=== PATIENT | male | born 1965 | race Caucasian/White ===

== ENCOUNTER 2020-12-22 10:43 | Outpatient (CLI) | payer MEDICARE, OTHER, SELFPAY ==
--- NOTE | ~2020-12-22 | CT_ITS ---
EXAMINATION: CT lung screening DATE: 12/22/2020 11:05 INDICATION: History of tobacco dependence. TECHNIQUE: Computed tomography (CT) of the chest was performed without intravenous contrast. The dose -length product was 131.54 mGy-cm. Automated exposure control and iterative reconstruction technique were employed. COMPARISON: None FINDINGS: There is mild emphysema. No thoracic lymphadenopathy. Heart size is normal. No significant pleural or pericardial effusion. No evidence for aortic aneurysm. The upper abdomen is unremarkable. There is a 3 mm left lower lobe nodule, image 69. Calcified granulomas of the lingula. No lytic or bl astic lesions. IMPRESSION: 1. Lung-RADS category 2: Benign appearance or behavior. Continue annual screening with noncontrast lo w-dose chest CT in 12 months. Reviewed, dictated and finalized at location B. IMPRESSION: 1. Lung-RADS category 2: Benign appearance or behavior. Continue annual screeni ng with noncontrast low-dose chest CT in 12 months.
== END 2020-12-22 10:44 | disposition home or self-care (01) ==
PROVIDERS: PCP Internal Medicine; Visit Provider Nurse Practitioner
DX: Z12.2 Encounter for screening for malignant neoplasm of respiratory organs (principal); Z72.0 Tobacco use
CPT/HCPCS: 71271

== ENCOUNTER 2022-02-27 12:07 | Outpatient (CLI) | payer MEDICARE, SELFPAY ==
--- NOTE | ~2022-02-27 | MR_ITS ---
EXAMINATION: MR brain/brain stem wo/w con DATE: 02/27/2022 12:56 INDICATION: Multiple sclerosis. TECHNIQUE: Magnetic resonance imaging (MRI) of the brain and brainstem was performed without and with 18 mL MultiHance intravenous contrast. COMPARISON: None. FINDINGS: There are approximately 8 total lesions of increased T2-weighted signal intensity in the br ain. Of these lesions, multiple are periventricular, one is juxtacortical, and none are infratentoria l. None of the lesions enhance. There is no acute ischemic infarct or intracranial hemorrhage. The ve ntricles are normal in size. There is mucosal thickening in the paranasal sinuses. There are mucous r etention cysts in right maxillary sinus. The orbits are normal. There are trace bilateral mastoid eff usions. IMPRESSION: 1. Mild nonspecific cerebral white matter disease, which may be multiple sclerosis and/or chronic sma ll vessel ischemic disease. Reviewed, dictated and finalized at location A. IMPRESSION: 1. Mild nonspecific cerebral white matter disease, which may be multiple sclero sis and/or chronic small vessel ischemic disease.
[2022-02-27 12:33] LABS: Estimated Glomerular Filt Rate > 60
== END 2022-02-27 12:08 ==
PROVIDERS: PCP Internal Medicine
DX: G35 Multiple sclerosis (principal); R90.82 White matter disease, unspecified
CPT/HCPCS: 70553; A9577

== ENCOUNTER 2022-03-05 11:39 | Outpatient (CLI) | payer MEDICARE, SELFPAY ==
--- NOTE | ~2022-03-05 | CT_ITS ---
EXAMINATION:CT lung screening DATE: 03/05/2022 12:13 INDICATION: Tobacco use. TECHNIQUE: Computed tomography (CT) of the chest was performed without intravenous contrast. Automate d exposure control and iterative reconstruction technique were employed. The dose-length product (DLP ) was 174.83 mGy-cm. COMPARISON: Chest CT 12/22/2020 FINDINGS: There is mild emphysema. There is mild atelectasis bilaterally. There are a few 2 mm nodule s in the lungs. No pleural effusion. The heart size is normal. There are coronary artery calcificatio ns. No pericardial effusion. There is diffuse hepatic steatosis. There is moderate thoracic spondylos is. IMPRESSION: 1. Lung-RADS category 2: Benign appearance or behavior. Continue annual screening with noncontrast lo w-dose chest CT in 12 months. Reviewed, dictated and finalized at location B. IMPRESSION: 1. Lung-RADS category 2: Benign appearance or behavior. Continue annual screeni ng with noncontrast low-dose chest CT in 12 months.
== END 2022-03-05 11:40 | disposition home or self-care (01) ==
PROVIDERS: PCP Internal Medicine; Visit Provider Nurse Practitioner
DX: Z12.2 Encounter for screening for malignant neoplasm of respiratory organs (principal); Z87.891 Personal history of nicotine dependence
CPT/HCPCS: 71271

== ENCOUNTER → 2023-04-29 11:49 | Outpatient (CLI) | payer MEDICARE, SELFPAY ==
--- NOTE | ~2023-04-29 | CT_ITS ---
EXAMINATION: CT lung screening DATE: 04/29/2023 12:08 INDICATION: personal hx of nicotine dependence TECHNIQUE: Computed tomography (CT) of the chest was performed without intravenous contrast. Addition al 3D reconstructions utilizing coronal maximum intensity projection (MIP) were performed. Automated exposure control and iterative reconstruction technique were employed. The dose-length product was 11 3.10 mGy-cm. COMPARISON: 03/05/2022 FINDINGS: Mild emphysema. Small calcified nodule and mild discoid atelectasis at the caudal aspect of the lingu la. New subsegmental 5 x 2.5 mm endobronchial lesion within a bronchus in the anterobasilar segment o f the right lower lobe. A few unchanged 2 mm or smaller scattered bilateral pulmonary nodules. No pne umonia, pulmonary edema or pleural effusion. Heart size is normal. Small amount of atherosclerotic co ronary artery calcific location along the left anterior descending coronary artery. No pericardial ef fusion. Thoracic aorta is normal caliber. No pathologically enlarged thoracic lymphadenopathy. Modera te thoracic spondylosis. IMPRESSION: 1. Lung-RADS category 2: Benign appearance or behavior. Continue annual screening with noncontrast lo w-dose chest CT in 12 months. Reviewed, dictated and finalized at location L. IMPRESSION: 1. Lung-RADS category 2: Benign appearance or behavior. Continue annual screeni ng with noncontrast low-dose chest CT in 12 months.
== END ==
PROVIDERS: Visit Provider Nurse Practitioner
DX: Z12.2 Encounter for screening for malignant neoplasm of respiratory organs (principal); F17.210 Nicotine dependence, cigarettes, uncomplicated
CPT/HCPCS: 71271

== ENCOUNTER 2025-01-25 10:26 | Outpatient (CLI) | payer MEDICARE, SELFPAY ==
--- NOTE | ~2025-01-25 | CT_ITS ---
CT Scan of the Chest without Contrast: Clinical Indication: Lung cancer screening, nicotine dependence Technique: Contiguous sections were acquired throughout the chest without intravenous contrast. Dose reduction technique was used on this scan by utilizing automated exposure control and iterative recon struction technique. The dose-length product (DLP) was 119.88 mGy-cm. COMPARISON: 04/29/2023 Findings: There is no evidence of any significant mediastinal, hilar or axillary lymphadenopathy. The mediastin al soft tissues appear normal. There is no evidence of pleural or pericardial effusion. The lungs are clear. No pulmonary nodules or infiltrates are noted. Images through the upper abdomen reveal no abnormalities. Impression: Lung RADS 1: Negative. 12 month follow-up screening CT advised. Reviewed, dictated and finalized at location . Impression: Lung RADS 1: Negative. 12 month follow-up screening CT advised.
== END 2025-01-25 10:27 | disposition home or self-care (01) ==
LOC: MICIMG 10:27
PROVIDERS: PCP Internal Medicine; Visit Provider Nurse Practitioner
DX: Z12.2 Encounter for screening for malignant neoplasm of respiratory organs (principal); Z87.891 Personal history of nicotine dependence
CPT/HCPCS: 71271

== ENCOUNTER 2025-08-06 17:27 | Emergency (ER) | payer MEDICARE, SELFPAY ==
--- OUTSIDE RECORDS SUMMARY | 2006-02-14 03:10 | XMS_ITS | Continuity of Care Document ---
Author Organization [facility] Address [address] [place] [address] oad [place] [phone] Phone Care Team Providers Care Portal Architect Name Role Phone Eduardo HOROWITZ MD, Braxton Unavailable Unavaila ble Procedures Procedure Date Rating Letter Office consultation, [facility] Advance Directives Directive Yes / No Effective Date File Name No Information Encounters Encounter Description Practice Location Reason(s) For Visit Diagnoses Date Provider Providers Copied on Encounter Rating Letter [facility], [address] [place] [address], [address] [place] [address], tel:[phone] [facility] No Information 6-200 6 Eduardo Limon. [address], [id number] , [place]. tel: [phone] Office consultation, [facility], [address] [place] [address], [id number], tel:[phone] [facility] No Information 2200 6 Eduardo Limon. [facility] [address], [id number] , . tel: [phone] Family History Family Member Type Diagnosis Age At Onset No Information Payers Payer name Insurance type Covered democrat ID Authoriza tion(s) No Information Social History Type Description Quantity Date Captured Comments Sex Male Smoking Status No Information Chief Complaint And Reason For Visit No Information Reason For Referral Reason For Referral No Information History Of Present Illness Encounter Date Complaint History Of Prese nt Illness No Information Functional Status Date Functional Assessmen t No Information Instructions Date Instruction Additional Infor mation No Information Assessments Type Assessment Date No Information Patient Care Teams Name Effective Dates (start - stop) Status Members No Information
--- OUTSIDE RECORDS SUMMARY | 2006-02-14 03:10 | XMS_ITS | Continuity of Care Document ---
Author Organization [facility] Address [address] [place] [address] oad [place] [phone] Phone Care Team Providers Care Vice President Of Business Development Name Role Phone Eduardo HOROWITZ MD, Braxton Unavailable Unavaila ble Procedures Procedure Date Rating Letter Office consultation, [facility] Advance Directives Directive Yes / No Effective Date File Name No Information Encounters Encounter Description Practice Location Reason(s) For Visit Diagnoses Date Provider Providers Copied on Encounter Rating Letter [facility], [address] [place] [address], [address] [place] [address], tel:[phone] [facility] No Information 6-200 6 Eduardo Limon. [address], [id number] , [place]. tel: [phone] Office consultation, [facility], [address] [place] [address], [id number], tel:[phone] [facility] No Information 2200 6 Eduardo Limon. [facility] [address], [id number] , . tel: [phone] Family History Family Member Type Diagnosis Age At Onset No Information Payers Payer name Insurance type Covered republican ID Authoriza tion(s) No Information Social History [...]
--- OUTSIDE RECORDS SUMMARY | 2006-02-14 03:10 | XMS_ITS | Continuity of Care Document ---
Author Organization [facility] Address [address] [place] [address] oad [place] [phone] Phone Care Team Providers Care Counter Waiter Name Role Phone Eduardo HOROWITZ MD, Braxton Unavailable Unavaila ble Procedures Procedure Date Rating Letter Office consultation, [facility] Advance Directives Directive Yes / No Effective Date File Name No Information Encounters Encounter Description Practice Location Reason(s) For Visit Diagnoses Date Provider Providers Copied on Encounter Rating Letter [facility], [address] [place] [address], [address] [place] [address], tel:[phone] [facility] No Information 6-200 6 Eduardo Limon. [address], [id number] , [place]. tel: [phone] Office consultation, [facility], [address] [place] [address], [id number], tel:[phone] [facility] No Information 2200 6 Eduardo Limon. [facility] [address], [id number] , . tel: [phone] Family History Family Member Type Diagnosis Age At Onset No Information Payers Payer name Insurance type Covered libertarian ID Authoriza tion(s) No Information Social History [...]
--- OUTSIDE RECORDS SUMMARY | 2006-02-14 03:10 | XMS_ITS | Continuity of Care Document ---
Author Organization [facility] Address [address] [place] [address] oad [place] [phone] Phone Care Team Providers Care Welder Manufacture Name Role Phone Eduardo HOROWITZ MD, Braxton Unavailable Unavaila ble Procedures Procedure Date Rating Letter Office consultation, [facility] Advance Directives Directive Yes / No Effective Date File Name No Information Encounters Encounter Description Practice Location Reason(s) For Visit Diagnoses Date Provider Providers Copied on Encounter Rating Letter [facility], [address] [place] [address], [address] [place] [address], tel:[phone] [facility] No Information 6-200 6 Eduardo Limon. [address], [id number] , [place]. tel: [phone] Office consultation, [facility], [address] [place] [address], [id number], tel:[phone] [facility] No Information 2200 6 Eduardo Limon. [facility] [address], [id number] , . tel: [phone] Family History Family Member Type Diagnosis Age At Onset No Information Payers Payer name Insurance type Covered green party ID Authoriza tion(s) No Information Social History [...]
--- OUTSIDE RECORDS SUMMARY | 2007-08-10 08:29 | XMS_ITS | Continuity of Care Document ---
Author Organization [facility] Address [address] [place] [address] [address] [place] [address] Phone Care Team Providers Care Donor Support Technician Name Role Phone Willam Miller Unavailable Unavailable Procedures Procedure Date Eye Exam, New Patient Advance Directives Directive Yes / No Effective Date File Name No Information Encounters Encounter Description Practice Location Reason(s) For Visit Diagnoses Date Provider Providers Copied on Encounter [facility], [address], [place], [place], [id number], [place] tel:[phone] [facility] No Information 9-200 7 Angela Quarles. [address] [facility] , [address], [place], [address], [place]. tel:[phone] Referring Provider: Rodolfo Love, [address] [place], [address]. tel:[phone] Family History Family Member Type Diagnosis Age At Onset No Information Payers Payer name Insurance type Covered constitution party ID Authoriza tion(s) No Information Social [...]
--- OUTSIDE RECORDS SUMMARY | 2007-08-10 08:29 | XMS_ITS | Continuity of Care Document ---
Author Organization [facility] Address [address] [place] [address] [address] [place] [address] Phone Care Team Providers Care Wire Taper Name Role Phone Willam Miller Unavailable Unavailable Procedures Procedure Date Eye Exam, New Patient Advance Directives Directive Yes / No Effective Date File Name No Information Encounters Encounter Description Practice Location Reason(s) For Visit Diagnoses Date Provider Providers Copied on Encounter [facility], [address], [place], [place], [id number], [place] tel:[phone] [facility] [place] No Information 9-200 7 Angela Quarles. [address] [facility] , [address], [place], [address], [place]. tel:[phone] Referring Provider: Rodolfo Love, [address] [place], [address]. tel:[phone] Family History Family Member Type Diagnosis Age [...]
--- OUTSIDE RECORDS SUMMARY | 2007-08-10 08:29 | XMS_ITS | Continuity of Care Document ---
Author Organization [facility] Address [address] [place] [address] [address] [place] [address] Phone Care Team Providers Care Director Educational Radio Name Role Phone Willam Miller Unavailable Unavailable Procedures Procedure Date Eye Exam, New Patient Advance Directives Directive Yes / No Effective Date File Name No Information Encounters Encounter Description Practice Location Reason(s) For Visit Diagnoses Date Provider Providers Copied on Encounter [facility], [address], [place], [place], [id number], [place] tel:[phone] [facility] [place] No Information 9-200 7 Angela Quarles. [address] [facility] , [address], [place], [address], [place]. tel:[phone] Referring Provider: Rodolfo Love, [address] [place], [address]. tel:[phone] Family History Family Member Type Diagnosis Age [...]
--- OUTSIDE RECORDS SUMMARY | 2007-08-10 08:29 | XMS_ITS | Continuity of Care Document ---
Author Organization [facility] Address [address] [place] [address] [address] [place] [address] Phone Care Team Providers Care Laboratory Inspector Name Role Phone Willam Miller Unavailable Unavailable Procedures Procedure Date Eye Exam, New Patient Advance Directives Directive Yes / No Effective Date File Name No Information Encounters Encounter Description Practice Location Reason(s) For Visit Diagnoses Date Provider Providers Copied on Encounter [facility], [address], [place], [place], [id number], [place] tel:[phone] [facility] [place] No Information 9-200 7 Angela Quarles. [address] [facility] , [address], [place], [address], [place]. tel:[phone] Referring Provider: Rodolfo Love, [address] [place], [address]. tel:[phone] Family History Family Member Type Diagnosis Age [...]
--- NOTE | ~2025-08-06 | CT_ITS ---
EXAMINATION: CT abdomen pelvis wo con DATE: 08/06/2025 21:13 INDICATION: Generalized abdominal pain. TECHNIQUE: Computed tomography (CT) of the abdomen and pelvis was performed without intravenous contrast. Automated exposure control and iterative reconstruction technique were employed. The dose-length product was 555.71 mGy-cm. COMPARISON: None. FINDINGS: The visualized portions of the lung bases demonstrate mild atelectasis. No pleural effusion. The heart size is normal. No pericardial effusion. There is diffuse hepatic steatosis. There are gallstones in the gallbladder, which is normal in size. The spleen, pancreas, and adrenal glands are normal. There is a 10 mm cyst in right kidney. There is a 10 mm cyst in left kidney. There is no urolithiasis. The bladder is distended. The prostate is mildly enlarged. There are no dilated loops of bowel. The appendix is normal. There are no pathologically enlarged lymph nodes. There is no free intrape ritoneal fluid. There is moderate thoracic spondylosis and severe lumbar spondylosis. IMPRESSION: 1. Diffuse hepatic steatosis. Reviewed, dictated and finalized at location E. [facility]
[2025-08-06 17:30] VITALS: BP 125/75; PULSE 73; RESP 16; TEMP 37; O2SAT 99
--- OUTSIDE RECORDS SUMMARY | 2025-08-06 18:13 | XMS_ITS | Patient Health Record ---
Author Organization [facility] Address [address] [place] [address] Support Name Relationship Address Phone Michael Benitez Emergency Contact Unknown Nils Benitez Guarantor Unknown [phone] Allergies Allergen (clinical drug ingredient) Drug/Non Drug Allergy documented on EMR Reaction Allergy Type Onset Date Status penicillin Unknown Drug Allergy Active Reason For Referral No Information Social History Social History Additional Details Category Social Info Options Details Migrated Social History Migrated Social History (Alcohol:):yes (Drug use:):no (Marital Status:):single (Occupation:): field mechanic/site lead (Smoking:):yes PPD: 2 , pack-years:17 Plan Of Treatment No Information Insurance Providers Payer Name Payer Address Payer Phone Subscriber Number Group Number Insured Name Patient Relationship to Insured Coverage Start Date Coverage End Date [employer] PPO [address] [place] [address] [id number] Nils Benitez Self - patient is the insured
[2025-08-06 18:18] VITALS: BP 141/89; PULSE 69; RESP 19; TEMP 36.8; O2SAT 98
[2025-08-06 18:29] LABS: Hematocrit 45.4 % (42.0-52.0); Hemoglobin 15.9 g/dL (14.0-18.0); Immature Granulocyte Percent A 0.5 % (0-0.5); Lymphocytes Absolute Auto 2.23 K/mm3 (0.9-3.2); Mean Corpuscular HGB Conc 35.0 g/dl (32-36); Mean Corpuscular Hemoglobin 32.3 pg (26-34); Mean Corpuscular Volume 92.3 fl (80-100); Nucleated Red Blood Cells Absolute Auto 0.000 K/mm3 (0.0-0.012); Nucleated Red Blood Cells Perc 0.0 % (0.0-0.2); Platelet Count Result 269 k/mm3 (150-375); Red Blood Count 4.92 M/mm3 (4.6-6.20); White Blood Count 8.7 K/mm3 (4.5-10.0)
[2025-08-06 18:39] LABS: Alanine Aminotransferase 32 U/L (6-50); Albumin Level 4.6 g/dL (3.5-5.1); Alkaline Phosphatase 110 U/L (38-126); Anion Gap 9 mmol/L (4-12); Aspartate Amino Transferase 37 U/L (17-59); Bilirubin,Total 0.6 mg/dL (0.2-1.3); Blood Urea Nitrogen 10 mg/dL (9-20); Calcium 9.3 mg/dL (8.4-10.2); Carbon Dioxide 26 mmol/L (22-30); Chloride 95 mmol/L (98-107); Estimated CRCL calculation 104 ml/min; Estimated Glomerular Filt Rate > 60; Glucose 100 mg/dL (65-110); Lipase 114 U/L (23-300); Potassium 4.0 mmol/L (3.4-5.0); Sodium 130 mmol/L (137-145); Total Protein 8.4 g/dL (6.3-8.2)
--- NOTE | 2025-08-06 19:15 | ED.ABDPAIN ---
HPI - Abdominal Pain General Chief Complaint: Abdominal Pain Stated Complaint: right side abd pain, cough Time Seen by Provider: 08/06/25 18:03 History of Present Illness HPI narrative: 59-year-old male presenting with abdominal pain since this morning. Patient reports that he is a chronic smoker and maintains a chronic cough which can sometimes cause abdominal pain. He endorses that this pain feels different. Last bowel movement was yesterday and he reports it was normal. He states he still has his gallbladder and appendix. Denies urinary symptoms, nausea/vomiting, fever/chills, chest pain /shortness of breath. Related Data Home Medications ?Medication ?Instructions ?Recorded ?Confirmed ?Last Taken ?Type baclofen 5 mg tablet 5 mg PO BID PRN 02/25/22 09/09/23 Unknown History nugenix BYMOUTH 09/09/23 09/09/23 Unknown History ibuprofen 200 mg tablet 400 mg PO .QOD PRN 01/18/25 Unknown History Allergies Allergy/AdvReac Type Severity Reaction Status Date / Time bee venom protein (honey bee) Allergy Unknown Unknown Verified 08/06/25 18:18 Penicillins Allergy Unknown Unknown Verified 08/06/25 18:18 Review of Systems Review of Systems: All systems reviewed & are unremarkable except as noted in HPI and below PMFSH Past Medical History Medical History (Updated 08/07/25 @ 00:22 by AMADEO Keith) Hyperlipidemia Multiple sclerosis GERD (gastroesophageal reflux disease) Allergies Family History Family History Father Cancer Mother Thyroid disorder Alzheimer's dementia Grandparent Alcohol abuse Social History Social History Smoking packs per day: 2 Smoking cigarettes per day: 40.0 Smoking status: Current every day smoker Tobacco type: cigarettes Alcohol intake: current Alcohol use details: socially, less than 1 drink per week. Substance use: never Lack of Transportation: No Lack of Food: Never True Concerned About Future Housing: No Difficulty Paying Gas/Electric Bills: No Difficulty Paying for Meds: No Currently Unemployed: No Education: Associate Degree Difficulty w/ Childcare or Family Care: No Exam Narrative: GENERAL: Well-appearing, well-nourished, and in no acute distress. HEAD: Normocephalic, atraumatic. EYES: PERRLA and EOMI. ENT: Nares clear, no rhinorrhea or epistaxis. Mucous membranes moist. Oropharynx without tonsillar hypertrophy exudate or other lesions. Bilateral TMs pearly frederick non-bulging NECK: Supple. No adenopathy or masses. No carotid bruits or JVD CHEST: Clear to auscultation. No respiratory distress. No wheezes rales or rhonchi HEART: Regular rate and rhythm. No murmur heard. Normal peripheral pulses. ABDOMEN: Soft, nontender, nondistended, normal active bowel sounds. Right sided flank below the ribs reproducible tenderness. No CVA tenderness. EXTREMITIES: Normal range of motion. No edema. SKIN: Warm, dry, no rash. NEURO: No focal deficits. Alert and oriented x3. PSYCH: Normal mood and affect Course Vital Signs Vital signs: Vital Signs Temperature 98.6 F 08/06/25 17:30 Pulse Rate 73 08/06/25 17:30 Respiratory Rate 16 08/06/25 17:30 Blood Pressure 125/75 08/06/25 17:30 Pulse Oximetry 99 08/06/25 17:30 Oxygen Delivery Room Air 08/06/25 17:30 Temperature 98.3 F 08/06/25 18:18 Pulse Rate 69 08/06/25 18:18 Respiratory Rate 19 08/06/25 18:18 Blood Pressure 141/89 H 08/06/25 18:18 Pulse Oximetry 98 08/06/25 18:18 Oxygen Delivery Room Air 08/06/25 18:18 MDM - Abdominal Pain MDM Narrative Medical decision making narrative: 59-year-old male presenting with right-sided abdominal pain since this morning. Patient reports that he is a chronic smoker and maintains a chronic cough which can sometimes cause abdominal pain. He endorses that this pain feels different. Last bowel movement was yesterday and he reports it was normal. He states he still has his gallbladder and appendix. Denies urinary symptoms, nausea/vomiting, fever/chills, chest pain /shortness of breath. Patient's abdomen is soft without significant pain or signs of surgical abdomen on serial exams. CT abdomen pelvis within normal limits. Lab and CT evaluations are reviewed and patient is felt to be a reasonable candidate for outpatient management. Patient was instructed as to limitations of CT and laboratory evaluation and encouraged to follow with PCP for further evaluation. Discharged with Flexeril. Given reasons to return to the ED. Medical Records Attestation: I reviewed the patient's medical records. Lab Data 08/06/25 18:22 08/06/25 18:22 Labs: Lab Results 08/06/25 08/06/25 Range/Units 18:22 19:06 WBC 8.7 (4.5-10.0) K/mm3 RBC 4.92 (4.6-6.20) M/mm3 Hgb 15.9 (14.0-18.0) g/dL Hct 45.4 (42.0-52.0) % MCV 92.3 (80-100) fl MCH 32.3 (26-34) pg MCHC 35.0 (32-36) g/dl RDW 12.3 (11.5-14.5) % Plt Count 269 (150-375) k/mm3 MPV 9.0 (7.4-10.4) fl Immature Gran % (Auto) 0.5 (0-0.5) % Neut % (Auto) 58.7 (45.5-73.1) % Lymph % (Auto) 25.6 (18.3-44.2) % Nuckolls % (Auto) 11.0 H (2.6-8.5) % Eos % (Auto) 3.4 (0-4.4) % Baso % (Auto) 0.8 (0.2-1.2) % Lymph # (Auto) 2.23 (0.9-3.2) K/mm3 Nuckolls # (Auto) 1.0 H (0.1-0.6) K/mm3 Eos # (Auto) 0.3 (0-0.3) K/mm3 Baso # (Auto) 0.1 (0.0-0.1) K/mm3 Abs Immat Gran (auto) 0.04 H (0.00-0.031) K/mm3 Absolute Neuts (auto) 5.1 (1.3-6.7) K/mm3 Absolute Nucleated RBC 0.000 (0.0-0.012) K/mm3 Nucleated RBC % 0.0 (0.0-0.2) % Sodium 130 L (137-145) mmol/L Potassium 4.0 (3.4-5.0) mmol/L Chloride 95 L (98-107) mmol/L Carbon Dioxide 26 (22-30) mmol/L Anion Gap 9 (4-12) mmol/L BUN 10 (9-20) mg/dL Creatinine 0.75 (0.7-1.3) mg/dL Estim Creat Clear Calc 104 ml/min Estimated GFR > 60 (59 - ) Glucose 100 (65-110) mg/dL Calcium 9.3 (8.4-10.2) mg/dL Total Bilirubin 0.6 (0.2-1.3) mg/dL AST 37 (17-59) U/L ALT 32 (6-50) U/L Alkaline Phosphatase 110 (38-126) U/L Total Protein 8.4 H (6.3-8.2) g/dL Albumin 4.6 (3.5-5.1) g/dL Lipase 114 (23-300) U/L Urine Color Yellow (Yellow) Urine Appearance Clear (Clear) Urine pH 5.5 (5.0-9.0) Ur Specific [place] 1.008 (1.001-1.035) Urine Protein Negative (Negative) mg/dL Urine Glucose (UA) Negative (Negative) mg/dL Urine Ketones Negative (Negative) mg/dL Ur Blood (Man) Negative (Negative) Urine Nitrate Negative (Negative) Urine Bilirubin Negative (Negative) Urine Urobilinogen 0.2 (<2.0) mg/dL Leukocyte Esterase Rfl Trace H (Negative) ANT/UL Urine RBC 0-2 (0-2) /hpf Urine WBC 0-5 (0-3) /hpf Ur Squamous Epith Cells None seen (Few) /hpf Urine Bacteria None seen /hpf Urine Casts 0-2 Imaging Data Attestation: I personally reviewed and interpreted this imaging study as follows: Radiologist's impression: CT abdomen pelvis impression: Question minimal right hydronephrosis. No visualized nephrolithiasis. Clinical correlation is recommended. The remaining solid organs are within normal limits. No bowel obstruction. Normal appendix. No fracture. Discharge Plan Discharge Clinical Impression: Musculoskeletal pain Patient Disposition: Home Condition: Stable Instructions: Muscle Strain (ED) Additional Instructions: Return to the ER if you experience weakness, numbness, bowel/bladder incontinence, or any other symptoms that are concerning to you Rest, use ice/heat, take anti-inflammatories (Aleve, Ibuprofen, Naproxen, etc) or Tylenol as needed for pain as well as muscle relaxer (Flexeril) as needed for pain. Muscle relaxers can make you drowsy, do not drive if you take this Follow up with your primary care doctor. Patient Language: Honduran Prescriptions: New cyclobenzaprine 10 mg tablet 10 mg PO TID PRN (Reason: muscle spasm) Qty: 20 0RF No Action nugenix BYMOUTH baclofen 5 mg tablet 5 mg PO BID PRN ibuprofen 200 mg tablet 400 mg PO .QOD PRN omeprazole 40 mg capsule,delayed release(DR/EC) See Rx Instructions .ROUTE .COMPLEX Qty: 90 1RF Dose Instruction: TAKE 1 CAPSULE BY MOUTH DAILY -MUST MAKE APPOINTMENT FOR FURTHER REFILLS Rx Instructions: TAKE 1 CAPSULE BY MOUTH DAILY - icosapent ethyl [Vascepa] 1 gram capsule 2 g PO BID Qty: 360 1RF atorvastatin 10 mg tablet 10 mg PO QHS Qty: 90 1RF gabapentin 100 mg capsule 100 mg PO TID Qty: 270 0RF Follow-up/Referrals: Josue Elizabeth DO [Primary Care Provider, Internal Medicine]
[2025-08-06 19:25] LABS: Add Urine Microscopic? YES; Appearance Urine Clear (Clear); Glucose Urine UA Negative (Negative); Leukocyte Esterase Ur Trace LEU/UL (Negative); Nitrate Urine Negative (Negative); Non Pathogenic Casts 0-2; Specific Grav Ur 1.008 (1.001-1.035)
[2025-08-06] MEDS: LIDOCAINE 5% PATCH 1 PATCH TRANSDERM (21:50)
[2025-08-06] MEDS: ACETAMINOPHEN 500 MG TABLET 1000 MG PO (21:51)
== END 2025-08-07 00:32 | disposition home or self-care (01) ==
PROVIDERS: Emergency Medicine; PCP Internal Medicine
DX: M79.18 Myalgia, other site (principal); E78.5 Hyperlipidemia, unspecified; G35.D Multiple sclerosis, unspecified; K21.9 Gastro-esophageal reflux disease without esophagitis; F17.210 Nicotine dependence, cigarettes, uncomplicated
CPT/HCPCS: 36415; 74176; 80053; 81001; 83690; 85025; 99284; A9270